=== PATIENT | female | born 1990 | race Caucasian/White ===

== ENCOUNTER 2016-08-08 15:39 | Emergency (ER) | payer SELFPAY ==
[~2016-08-08 15:39] MED LIST: HYDR-79 PO; ONDA8TAB12 PO
[2016-08-08 15:40] VITALS: BP 138/67
--- NOTE | 2016-08-08 16:59 | PHYS DOC ---
General Chief Complaint: SYNCOPE Stated Complaint: FALL/PASSED OUT Time Seen by MD: 16:28 Source: patient Exam Limitations: no limitations Problems: History of Present Illness Initial Comments Patient is a 26-year-old female who comes to the ED after syncopal episode. Patient states that immediately prior to emergency department arrival she was in the [place]'s restroom when she developed chills, shortness of breath with chest pressure, and severe weakness. She felt as if she would pass out and says she started to lower herself to the floor. Her next recollection was waking up on the floor as another [employer] customer who happened to be an RN found her lying on the bathroom floor. No postictal confusion reported, EMS was called and pt refused transfer. Upon regaining consciousness pt felt a very mild global headache and generalized right shoulder pain. No focal bony TTP, pt c/o diffuse muscular pain with right shoulder ROM. Pt works at a car wash outdoors, states she gets very hot at work but drinks water constantly in attempt to avoid dehydration. Currently menstruating, denies she stopped taking OCP last month as she and SO want to have another child. Pt states that this past month she has had two similar episodes both at rest and without emotional stress. The two prior episodes pt developed sudden onset SOB with chest pressure and weakness, both times she thought she was having an NE and took ASA per her mother who is RN. Both times symptoms resolved spontaneously. No prior syncopal episodes or chest pain, no h/o seizures or recent infections, denies illicit drugs or tobacco she drinks etoh occasionally. Timing/Duration: 1/2 hour Severity: severe Modifying Factors: improves with other Associated Symptoms: chest pain, malaise, shortness of breath, syncope, weakness Allergies: Coded Allergies: No Known Drug Allergies (Unverified , 06/26/15) Past Medical History Medical History: other (anxiety, hepatitis C) Surgical History: noncontributory Social History Smoker: non-smoker Alcohol: none Drugs: none Review of Systems Constitutional: denies chills, denies diaphoresis, denies fever, malaise, weakness Respiratory: denies cough, shortness of breath, denies wheezing Cardiovascular: see HPI, syncope Gastrointestinal: denies abdominal pain, denies diarrhea, denies nausea, denies vomiting Genitourinary: denies discharge, denies frequency, denies pain Musculoskeletal: denies back pain, denies joint swelling, denies neck pain Psychiatric/Neurological: see HPI Hematologic/Lymphatic: denies blood clots, denies easy bleeding, denies easy bruising Physical Exam General Appearance: no apparent distress Eyes: bilateral eye normal inspection, bilateral eye PERRL, bilateral eye EOMI Ear, Nose, Throat: hearing grossly normal, normal ENT inspection, normal pharynx Neck: non-tender, supple Respiratory: normal breath sounds, no respiratory distress Cardiovascular: normal peripheral pulses, regular rate, rhythm, no edema Gastrointestinal: normal bowel sounds, non tender, soft Back: normal inspection, no CVA tenderness, no vertebral tenderness Extremities: normal range of motion, normal inspection, no pedal edema (mild left calf TTP no swell/erythema/warmth/palpable mass), other (diffuse right shoulder TTP no bony TTP, SITS intact no swell/ecchymosis) Neurologic/Psychiatric: stair builder II-XII nml as tested, alert, normal mood/affect, oriented x 3, other (no motor deficits, slight decreased sensory left face and LUE) Skin: warm/dry, pallor Orders, Labs, Meds EKG: sinus bradycardia 53 bpm, nonspecific ST-T changes no STEMI. Interpreted by me. PATIENT: [facility] ACCOUNT: [id number] : 1990 LOCATION: ER AGE: 26 SEX: F EXAM STATUS: REG ER ORD. PHYSICIAN: FRANCA ARCHER DO REASON: syncope PROCEDURE: PORTABLE CHEST 1V Indication: Syncope. Time of exam 1658 hours. Correlation is made with prior study from 06/26/2015. FINDINGS: The heart size is normal. The lungs are clear. No pleural effusion or pneumothorax is identified. The pulmonary vascularity is normal. IMPRESSION: No acute abnormality detected. DICTATED AND SIGNED BY: KALI MADRID MD DATE: 08/08/16 1703 CC: PCP,NO; FRANCA ARCHER DO ~ d-dimer 0.58, AST 202, ALT 497, UDS + cannabinoids and benzos. No new or progressive symptoms thru ED course. I discussed findings at length with pt. History concerning for possible arrhythmia, inpatient admission and cardiology evaluation recommended. Patient states that she does not want to stay and requests discharge. I discussed discharge AGAINST MEDICAL ADVICE and risks and benefits of staying versus leaving at length with the patient and her questions were answered. She persistently requests discharge, she will leave AGAINST MEDICAL ADVICE see departure instructions. Departure Time of Disposition: 17:44 Disposition: 07 AGAINST MEDICAL ADVICE Diagnosis: syncope, elevated d-dimer, marijuana abuse Condition: GUARDED Patient Instructions: Discharge Against Medical Advice, Marijuana Abuse and Chemical Dependency, Syncope, [id number] Additional Instructions: As discussed you have chosen to leave AGAINST MEDICAL ADVICE. Benefits of staying for further evaluation have been explained to you, including potential early detection/treatment of life threatening condition. Possible risks of leaving without evaluation include worsening of condition, loss of quality of life and . You may return for further evaluation at any time. No driving, operating machinery, or swimming until cleared by your doctor. Discontinue marijuana abuse, seeking medical assistance if necessary. Off work through August 14, note given. Aggressive hydration with Gatorade and water. As discussed your symptoms are concerning for possible arrhythmia and inpatient cardiology evaluation recommended. Per your request: Dr [facility], call to schedule appointment. Return to ED as needed. FRANCA ARCHER DO Aug 08, 2016 16:59
[2016-08-08 17:01] LABS: BASO % 1 % (0-3); EOS # 0.1 x10^3/uL (0.0-0.7); EOS % 1 % (0-3); HEMATOCRIT 41.7 % (36.0-47.0); HEMOGLOBIN 13.9 g/dL (12.0-15.5); LYMPH % 26 % (24-48); MEAN CORPUSCULAR HEMOGLOBIN 31 pg (25-35); MEAN CORPUSCULAR HGB CONC 33 g/dL (31-37); MEAN CORPUSCULAR VOLUME 93 fL (79-100); MONO # 0.6 x10^3/uL (0.0-1.1); MONO % 8 % (0-9); NEUT # 4.8 x10^3uL (1.8-7.7); NEUT % 64 % (31-73); PLATELET COUNT 248 x10^3/uL (140-400); RED BLOOD COUNT 4.47 x10^6/uL (3.50-5.40); RED CELL DISTRIBUTION WIDTH 13.6 % (11.5-14.5); WHITE BLOOD COUNT 7.6 x10^3/uL (4.0-11.0)
--- NOTE | 2016-08-08 17:04 | RAD ---
Indication: Syncope. Time of exam 1658 hours. Correlation is made with prior study from 06/26/2015. FINDINGS: The heart size is normal. The lungs are clear. No pleural effusion or pneumothorax is identified. The pulmonary vascularity is normal. IMPRESSION: No acute abnormality detected.
[2016-08-08 17:09] LABS: AMPHETAMINE/METHAMPHETAMINE NEG (NEG); BARBITURATES NEG (NEG); BENZODIAZEPINES POS (NEG); CANNABINOIDS POS (NEG); COCAINE NEG (NEG); METHADONE NEG (NEG); OPIATES NEG (NEG); PHENCYCLIDINE NEG (NEG)
[2016-08-08 17:11] LABS: BACTERIA,URINE FEW /HPF (0-FEW); BILIRUBIN,URINE NEG (NEG); CLARITY,URINE CLEAR; COLOR,URINE YELLOW; GLUCOSE,URINE NEG (NEG); NITRITE,URINE NEG (NEG); RBC,URINE RARE /HPF (0-2); SQUAMOUS EPITHELIAL CELL,UR FEW /LPF; UROBILINOGEN,URINE 1 mg/dL (0.2 mg/dL); WBC,URINE RARE /HPF (0-4)
[2016-08-08 17:13] LABS: ALBUMIN 3.9 g/dL (3.4-5.0); ALBUMIN/GLOBULIN RATIO 0.9 (1.0-1.7); CALCIUM 8.9 mg/dL (8.5-10.1); CREATININE 0.7 mg/dL (0.6-1.0); GFR 99.6; MAGNESIUM 1.9 mg/dL (1.8-2.4); POTASSIUM 3.9 mmol/L (3.5-5.1); TOTAL BILIRUBIN 0.5 mg/dL (0.2-1.0); TOTAL PROTEIN 8.3 g/dL (6.4-8.2)
[2016-08-08] MEDS ORDERED: IV NORMAL SALINE 1,000ML 1,000 ML IV SCH (17:15)
[2016-08-08] MEDS ORDERED: ONDANSETRON PF 4 MG/2 ML VIAL. IV ONE (17:15)
[2016-08-08] MEDS ORDERED: HYDROcodone/APAP 7.5/325MG 1 TAB TABLET PO ONE (17:15)
--- NOTE | 2016-08-08 17:39 | EKG ---
[address] [address] Test Date: 2016-08-08 Test Time: 17:15:06 Pat Name: ANNETTA TORO Department: Room: Gender: F X Ray Consultant: : 1990 Requested By: FRANCA ARCHER Order Number: [id number] Reading MD: Measurements Intervals [place] Rate: 53 P: 48 CO: 122 QRS: 61 QRSD: 82 T: 46 QT: 406 QTc: 383 Interpretive Statements SINUS RHYTHM QRS(T) CONTOUR ABNORMALITY CANNOT RULE OUT ANTEROSEPTAL MYOCARDIAL DAMAGE RI6.01 Unconfirmed report No previous ECG available for comparison
== END 2016-08-08 18:14 | disposition left against medical advice (07) ==
LOC: ER 15:39
DX: R55 Syncope and collapse (principal); F12.10 Cannabis abuse, uncomplicated; R79.89 Other specified abnormal findings of blood chemistry; R79.1 Abnormal coagulation profile; M25.511 Pain in right shoulder; F41.9 Anxiety disorder, unspecified; Z86.19 Personal history of other infectious and parasitic diseases
CPT/HCPCS: 36415; 71010; 80053; 80305; 80320; 81001; 81025; 82550; 83605; 83735; 84484; 85027; 85379; 93005; 96361; 96374; 99285; J2405; G0481; J7030

== ENCOUNTER 2016-08-26 06:15 | Emergency (ER) | payer SELFPAY ==
[~2016-08-26] VITALS: Ht 180.3 cm; Wt 105.7 kg
--- NOTE | 2016-08-26 06:27 | ED.ADGEN ---
Past History Past Medical History: Anxiety, Depression, Other Past Surgical History: Alcohol Use: Occasionally Drug Use: None Adult General Chief Complaint Chief Complaint Syncope HPI HPI Patient is a 26 year old female who presents with tiredness, syncopal episode intermittent shortness of breath and left elbow pain. She states she woke up all night had chest tightness with mild shortness of breath passed out and hit her left elbow on the floor and her boyfriend woke her up. She presents with left elbow pain, feeling extremely tired but denies any chest pain or shortness of breath currently. She states that she was seen before August and had a positive d-dimer assigned out AMA at that time. She is concerned because this is the second time she passed out and wants to make sure nothing drawn. She does have past medical history of hep C, PTSD and anxiety. She is very upset since her child at the age of 1 in a car with her ex- and she's seeing a psychiatrist at this time for this. He started her on her anxiety meds. She denies what hurt anybody or herself. She denies any family history of heart attacks or sudden . Review of Systems Review of Systems Constitutional: Denies fever or chills [] Eyes: Denies change in visual acuity, redness, or eye pain [] HENT: Denies nasal congestion or sore throat [] Respiratory: Denies cough or shortness of breath [] Cardiovascular: No additional information not addressed in HPI [] GI: Denies abdominal pain, nausea, vomiting, bloody stools or diarrhea [] : Denies dysuria or hematuria [] Musculoskeletal: Denies back pain, positive for left elbow pain Integument: Denies rash or skin lesions [] Neurologic: Denies headache, focal weakness or sensory changes [] Endocrine: Denies polyuria or polydipsia [] Current Medications Current Medications Current Medications Medications (Trade) Dose Ordered Sig/Rusty Start Time Stop Time Status Last Admin Dose Admin Morphine Sulfate (Morphine 4mg Syringe) 4 mg 1X ONCE 08/26/16 09:00 08/26/16 09:01 DC Allergies Allergies Allergies Coded Allergies Type Severity Reaction Last Updated Verified No Known Drug Allergies 06/26/15 No Physical Exam Physical Exam Constitutional: Well developed, well nourished, no acute distress, non-toxic appearance. [] HENT: Normocephalic, atraumatic, bilateral external ears normal, oropharynx moist, no oral exudates, nose normal. [] Eyes: PERRLA, EOMI, conjunctiva normal, no discharge. [] Neck: Normal range of motion, no tenderness, supple, no stridor. [] Cardiovascular:Heart rate regular rhythm, no murmur [] Lungs & Thorax: Bilateral breath sounds clear to auscultation [] Abdomen: Bowel sounds normal, soft, no tenderness, no masses, no pulsatile masses. [] Skin: Warm, dry, no erythema, no rash. [] Back: No tenderness, no CVA tenderness. [] Extremities: Mild tender palpation of the left elbow, no deformity noted, range of motion intact, able to supinate and pronate without any discomfort at the elbow. no cyanosis, no clubbing, ROM intact, no edema. [] Neurologic: Alert and oriented X 3, normal motor function, normal sensory function, no focal deficits noted. [] Psychologic: Affect normal, judgement normal, mood normal. [] Current Patient Data Vital Signs Vital Signs Date Time Temp Pulse Resp B/P (MAP) Pulse Ox O2 Delivery O2 Flow Rate FiO2 08/26/16 07:47 76 20 128/59 (82) 97 Room Air 08/26/16 06:15 98.5 Lab Results Laboratory Tests Test 08/26/16 07:25 08/26/16 07:39 08/26/16 07:42 Urine Collection Type Unknown Urine Color Yellow Urine Clarity Clear Urine pH 8.0 Urine Specific [place] 1.015 Urine Protein Neg (NEG-TRACE) Urine Glucose (UA) Neg mg/dL (NEG) Urine Ketones (Stick) Neg mg/dL (NEG) Urine Blood Neg (NEG) Urine Nitrite Neg (NEG) Urine Bilirubin Neg (NEG) Urine Urobilinogen Dipstick 0.2 mg/dL (0.2 mg/dL) Urine Leukocyte Esterase Neg (NEG) Urine RBC 0 /HPF (0-2) Urine WBC Occ /HPF (0-4) Urine Squamous Epithelial Cells Occ /LPF Urine Bacteria 0 /HPF (0-FEW) Urine Opiates Screen Neg (NEG) Urine Methadone Screen Neg (NEG) Urine Barbiturates Neg (NEG) Urine Phencyclidine Screen Neg (NEG) Urine Amphetamine/Methamphetamine Neg (NEG) Urine Benzodiazepines Screen Pos (NEG) Urine Cocaine Screen Neg (NEG) Urine Cannabinoids Screen Pos (NEG) Urine Ethyl Alcohol Neg (NEG) POC Urine HCG, Qualitative hcg negative (Negative) White Blood Count 7.6 x10^3/uL (4.0-11.0) Red Blood Count 3.99 x10^6/uL (3.50-5.40) Hemoglobin 12.6 g/dL (12.0-15.5) Hematocrit 37.2 % (36.0-47.0) Mean Corpuscular Volume 93 fL (79-100) Mean Corpuscular Hemoglobin 32 pg (25-35) Mean Corpuscular Hemoglobin Concent 34 g/dL (31-37) Red Cell Distribution Width 14.0 % (11.5-14.5) Platelet Count 202 x10^3/uL (140-400) Neutrophils (%) (Auto) 62 % (31-73) Lymphocytes (%) (Auto) 27 % (24-48) Monocytes (%) (Auto) 10 % (0-9) H Eosinophils (%) (Auto) 2 % (0-3) Basophils (%) (Auto) 0 % (0-3) Neutrophils # (Auto) 4.7 x10^3uL (1.8-7.7) Lymphocytes # (Auto) 2.0 x10^3/uL (1.0-4.8) Monocytes # (Auto) 0.7 x10^3/uL (0.0-1.1) Eosinophils # (Auto) 0.1 x10^3/uL (0.0-0.7) Basophils # (Auto) 0.0 x10^3/uL (0.0-0.2) Prothrombin Time 10.2 SEC (9.4-11.4) Prothrombin Time INR 1.0 (0.9-1.1) PTT 23 SEC (23-33) D-Dimer (Jami) 0.41 mg/L (0.00-0.50) Sodium Level 139 mmol/L (136-145) Potassium Level 3.8 mmol/L (3.5-5.1) Chloride Level 105 mmol/L (98-107) Carbon Dioxide Level 31 mmol/L (21-32) Anion Gap 3 (6-14) L Blood Urea Nitrogen 11 mg/dL (7-20) Creatinine 0.7 mg/dL (0.6-1.0) Estimated GFR (Cockcroft-Gault) 99.6 Glucose Level 76 mg/dL (70-99) Calcium Level 8.6 mg/dL (8.5-10.1) Magnesium Level 1.6 mg/dL (1.8-2.4) L Total Bilirubin 0.3 mg/dL (0.2-1.0) Direct Bilirubin 0.1 mg/dL (0.0-0.2) Aspartate Amino Transferase (AST) 122 U/L (15-37) H Alanine Aminotransferase (ALT) 348 U/L (14-59) H Alkaline Phosphatase 64 U/L (46-116) Creatine Kinase 43 U/L (26-192) Creatine Kinase MB (Mass) < 0.5 ng/mL (0.0-3.6) Creatine Kinase MB Relative Index 1.2 % (0-4) SO-Srd-Z-Type Natriuretic Peptide 129 pg/mL (0-124) H Total Protein 7.0 g/dL (6.4-8.2) Albumin 3.2 g/dL (3.4-5.0) L EKG EKG EKG shows normal sinus [address] elevations or T-wave inversions, normal axis, QTC 398 ms, as interpreted by me. Radiology/Procedures Radiology/Procedures 3 views of the left elbow did not show any fractures, foreign bodies, soft tissue abnormalities as interpreted by me. Course & Med Decision Making Course & Med Decision Making Pertinent Labs and Imaging studies reviewed. (See chart for details) EKG, x-ray of her elbow, labs are nonacute. She does have hep C which reflects in her LFTs. She does not have any thoughts of harming herself or anybody else. She is being provided a primary care list of physicians to call for follow-up. Her d-dimer is negative and she does not have any chest pain or shortness of breath, therefore I do not believe she needs a CT angiogram. Her symptoms are likely secondary to her stress that she is going through.Return precautions given. She is agreeable plan and being discharged in stable condition this time. She is also being given information to the [facility] because she said that her psychiatrist fee's are $70 per visit, and it is difficult for her to afford that. Final Impression Final Impression Anxiety/grief reaction Syncopal episode Hepatitis C Problems: Dragon Disclaimer Dragon Disclaimer This electronic medical record was generated, in whole or in part, using a voice recognition dictation system. JATIN LAIRD MD Aug 26, 2016 06:27
[2016-08-26 07:56] LABS: BASO % 0 % (0-3); EOS # 0.1 x10^3/uL (0.0-0.7); EOS % 2 % (0-3); HEMATOCRIT 37.2 % (36.0-47.0); HEMOGLOBIN 12.6 g/dL (12.0-15.5); LYMPH % 27 % (24-48); MEAN CORPUSCULAR HEMOGLOBIN 32 pg (25-35); MEAN CORPUSCULAR HGB CONC 34 g/dL (31-37); MEAN CORPUSCULAR VOLUME 93 fL (79-100); MONO # 0.7 x10^3/uL (0.0-1.1); MONO % 10 % (0-9); NEUT # 4.7 x10^3uL (1.8-7.7); NEUT % 62 % (31-73); PLATELET COUNT 202 x10^3/uL (140-400); RED BLOOD COUNT 3.99 x10^6/uL (3.50-5.40); WHITE BLOOD COUNT 7.6 x10^3/uL (4.0-11.0)
[2016-08-26 08:01] LABS: BARBITURATES NEG (NEG); BENZODIAZEPINES POS (NEG); CANNABINOIDS POS (NEG); COCAINE NEG (NEG); METHADONE NEG (NEG); OPIATES NEG (NEG); PHENCYCLIDINE NEG (NEG)
[2016-08-26 08:02] LABS: AMPHETAMINE/METHAMPHETAMINE NEG (NEG)
[2016-08-26 08:10] LABS: BACTERIA,URINE 0 /HPF (0-FEW); BILIRUBIN,URINE NEG (NEG); CLARITY,URINE CLEAR; COLOR,URINE YELLOW; GLUCOSE,URINE NEG (NEG); NITRITE,URINE NEG (NEG); RBC,URINE 0 /HPF (0-2); SQUAMOUS EPITHELIAL CELL,UR OCC /LPF; UROBILINOGEN,URINE 0.2 mg/dL (0.2 mg/dL); WBC,URINE OCC /HPF (0-4)
[2016-08-26 08:18] LABS: ALBUMIN 3.2 g/dL (3.4-5.0); ALK PHOS 64 U/L (46-116); ALT (SGPT) 348 U/L (14-59); ANION GAP 3 (6-14); AST (SGOT) 122 U/L (15-37); BLOOD UREA NITROGEN 11 mg/dL (7-20); CALCIUM 8.6 mg/dL (8.5-10.1); CARBON DIOXIDE 31 mmol/L (21-32); CHLORIDE 105 mmol/L (98-107); CREATINE KINASE 43 U/L (26-192); CREATININE 0.7 mg/dL (0.6-1.0); DIRECT BILIRUBIN 0.1 mg/dL (0.0-0.2); GFR 99.6; GLUCOSE 76 mg/dL (70-99); MAGNESIUM 1.6 mg/dL (1.8-2.4); POTASSIUM 3.8 mmol/L (3.5-5.1); SODIUM 139 mmol/L (136-145); TOTAL BILIRUBIN 0.3 mg/dL (0.2-1.0)
[2016-08-26] MEDS ORDERED: MORPHINE SULFATE 4 MG/ML DISP.SYRIN. IV ONE (09:00)
--- NOTE | 2016-08-26 09:00 | RAD ---
EXAM: Chest one view. HISTORY: Syncope. COMPARISON: 08/08/2016. FINDINGS: A frontal view of the chest is obtained. There are no confluent infiltrates. There is no pneumothorax or pleural effusion. The heart is not enlarged. IMPRESSION: 1. No confluent infiltrates.
--- NOTE | 2016-08-26 09:19 | RAD ---
EXAM: Left elbow 3 views. HISTORY: Fall with left elbow pain. COMPARISON: None. FINDINGS: No fractures are identified. Joint spaces and alignment are maintained. There is no joint effusion. IMPRESSION: 1. No fracture.
[2016-08-26 10:00] VITALS: BP 128/70
== END 2016-08-26 10:03 | disposition home or self-care (01) ==
LOC: ER 06:15
DX: R55 Syncope and collapse (principal); B19.20 Unspecified viral hepatitis C without hepatic coma; M25.522 Pain in left elbow; F41.9 Anxiety disorder, unspecified; F32.9 Major depressive disorder, single episode, unspecified
CPT/HCPCS: 36415; 71010; 73080; 80048; 80076; 80305; 80320; 81001; 81025; 82553; 83735; 83880; 84443; 85027; 85379; 85610; 85730; 93005; 96374; 99285; J2270; G0481

== ENCOUNTER 2016-09-17 19:37 | Emergency (ER) | payer SELFPAY ==
[2016-09-17] MEDS ORDERED: IV NORMAL SALINE 1,000ML 1,000 ML IV ONE (19:45)
[2016-09-17] MEDS ORDERED: MIDAZOLAM HCL 5 MG/5 ML VIAL ONE ×2 (20:11→21:00)
[2016-09-17] MEDS ORDERED: PROPOFOL 100 ML IV ONE ×2 (20:21→21:20)
[2016-09-17] MEDS ORDERED: IV NORMAL SALINE 100ML 100 ML ONE (20:42)
[2016-09-17] MEDS ORDERED: levETIRAcetam 500 MG/5 ML VIAL IV ONE (20:42)
[2016-09-17 20:54] LABS: BASO % 1 % (0-3); EOS # 0.2 x10^3/uL (0.0-0.7); EOS % 2 % (0-3); HEMATOCRIT 41.2 % (36.0-47.0); HEMOGLOBIN 13.8 g/dL (12.0-15.5); LYMPH # 3.6 x10^3/uL (1.0-4.8); LYMPH % 45 % (24-48); MEAN CORPUSCULAR HEMOGLOBIN 32 pg (25-35); MEAN CORPUSCULAR HGB CONC 34 g/dL (31-37); MEAN CORPUSCULAR VOLUME 95 fL (79-100); MONO # 0.8 x10^3/uL (0.0-1.1); MONO % 10 % (0-9); NEUT # 3.4 x10^3uL (1.8-7.7); NEUT % 43 % (31-73); PLATELET COUNT 255 x10^3/uL (140-400); RED BLOOD COUNT 4.34 x10^6/uL (3.50-5.40); RED CELL DISTRIBUTION WIDTH 14.1 % (11.5-14.5)
[2016-09-17] MEDS ORDERED: SUCCINYLCHOLINE 200 MG/10 ML VIAL. ONE (21:00)
[2016-09-17] MEDS ORDERED: VECURONIUM 10 MG VIAL. IV ONE (21:00)
[2016-09-17] MEDS ORDERED: [UNRECOGNIZED DRUG - OTHER] IJ ONE (21:00)
[2016-09-17 21:05] LABS: AMPHETAMINE/METHAMPHETAMINE NEG (NEG); BARBITURATES NEG (NEG); BENZODIAZEPINES POS (NEG); CANNABINOIDS POS (NEG); COCAINE NEG (NEG); METHADONE NEG (NEG); OPIATES NEG (NEG); PHENCYCLIDINE NEG (NEG)
[2016-09-17 21:08] LABS: ALBUMIN 3.8 g/dL (3.4-5.0); ALBUMIN/GLOBULIN RATIO 0.8 (1.0-1.7); CALCIUM 8.6 mg/dL (8.5-10.1); CREATININE 0.7 mg/dL (0.6-1.0); GFR 99.6; POTASSIUM 3.7 mmol/L (3.5-5.1); TOTAL BILIRUBIN 0.4 mg/dL (0.2-1.0); TOTAL PROTEIN 8.3 g/dL (6.4-8.2)
[2016-09-17 21:20] LABS: BACTERIA,URINE 0 /HPF (0-FEW); BILIRUBIN,URINE NEG (NEG); CLARITY,URINE HAZY; COLOR,URINE YELLOW; GLUCOSE,URINE NEG (NEG); NITRITE,URINE NEG (NEG); RBC,URINE OCC /HPF (0-2); SQUAMOUS EPITHELIAL CELL,UR FEW /LPF; UROBILINOGEN,URINE 0.2 mg/dL (0.2 mg/dL); WBC,URINE OCC /HPF (0-4)
--- NOTE | 2016-09-17 21:45 | RAD ---
CT HEAD WO CONTRAST dated 09/17/2016 9:13 PM Indication: New-onset seizure possible overdose seizure. Comparison: No comparison is available. Technique: Contiguous axial imaging of the head performed from skull base to vertex. No contrast administered. One or more of the following individualized dose reduction techniques were utilized for this examination: 1. Automated exposure control 2. Adjustment of the mA and/or kV according to patient size 3. Use of iterative reconstruction technique Findings: Ventricles and sulci are within normal limits for age. No midline shift or mass effect. Brain parenchyma is of normal attenuation. No hemorrhage or extra-axial collection. Posterior fossa and brainstem unremarkable. Mild mucosal thickening bilateral ethmoid air cells. The visualized paranasal sinuses and mastoid air cells are otherwise clear. No acute calvarial abnormality. IMPRESSION: 1. No acute intracranial hemorrhage or mass. 2. Mild sinus disease. Electronically signed by: Randy Dalton MD (09/17/2016 9:42 PM) [facility]
[2016-09-17] MEDS ORDERED: LORazepam 2 MG/ML VIAL ONE (22:16)
[2016-09-17 22:23] VITALS: BP 130/70
[2016-09-17] MEDS ORDERED: LORazepam 2 MG/ML VIAL IV ONE (22:45)
--- NOTE | 2016-09-17 23:18 | ED.ADGEN ---
Past History Past Medical History: Anxiety, Depression, Renal Disease, Other Past Surgical History: Alcohol Use: Occasionally Drug Use: None Adult General Chief Complaint Chief Complaint seizure HPI HPI Patient is a 26 y/o female who was having a seizure at home. boyfriend called EMS. he thinks she has a seizure hx. he denied drugs. she had 1 'tall beer". EMS states she is having extending posturing type actions in all extremities for 10-15 sec. her HR is tachy. she is unresponsive to commands. they gave 15mg versed in route with little effect. pt is continuing to do this in ED. no traumas or illnesses per boyfriend Review of Systems Review of Systems Constitutional: unresponsive Eyes: HENT: Respiratory: spitting Cardiovascular: GI: : Musculoskeletal: Integument: D Neurologic:seizure, pt unresponsive Endocrine: Denies polyuria or polydipsia [] Current Medications Current Medications Current Medications Medications (Trade) Dose Ordered Sig/Rusty Start Time Stop Time Status Last Admin Dose Admin Levetiracetam (Keppra) 500 mg STK-MED ONCE 09/17/16 20:42 09/17/16 20:43 DC Levetiracetam 1000 mg/Sodium Chloride 100 ml @ 400 mls/hr 1X ONCE 09/17/16 20:15 09/17/16 20:29 DC 09/17/16 20:45 400 MLS/HR Lorazepam (Ativan) 1 mg 1X ONCE 09/17/16 22:45 09/17/16 22:46 DC Midazolam HCl (Versed) 5 mg STK-MED ONCE 09/17/16 20:11 09/17/16 20:12 DC Propofol 100 ml @ As Directed STK-MED ONCE 09/17/16 21:20 09/17/16 21:21 DC Sodium Chloride 100 ml @ As Directed STK-MED ONCE 09/17/16 20:42 09/17/16 20:43 DC Allergies Allergies Allergies Coded Allergies Type Severity Reaction Last Updated Verified No Known Drug Allergies 06/26/15 No Physical Exam Physical Exam Constitutional: Well developed,unresponsive, HENT: Normocephalic, atraumatic, bilateral external ears normal, oropharynx moist, no oral exudates, nose normal. drooling and spitting Eyes: PERRLA, 4mm bilat, conjunctiva normal, no discharge. [] Cardiovascular: tachy, no murmur [] Lungs & Thorax: Bilateral breath sounds clear to auscultation [] Abdomen: Bowel sounds normal, soft, nondistended Extremities: pt extending all extremities. no clonic movements seen. moving all extremities equally. she is witdrawing during IV starts Neurologic: pt is not following commands. when she is having episodes of extending her extremities, her eyes roll to back of head. withdraws but no other purposeful movements. Current Patient Data Vital Signs Vital Signs Date Time Temp Pulse Resp B/P (MAP) Pulse Ox O2 Delivery O2 Flow Rate FiO2 09/17/16 22:40 100 Ventilator 09/17/16 19:37 97.5 125 20 Lab Results Laboratory Tests Test 09/17/16 20:30 09/17/16 20:33 09/17/16 20:49 09/17/16 20:50 Urine Collection Type U cath Urine Color Yellow Urine Clarity Hazy Urine pH 5.5 Urine Specific [place] 1.010 Urine Protein Neg (NEG-TRACE) Urine Glucose (UA) Neg mg/dL (NEG) Urine Ketones (Stick) Neg mg/dL (NEG) Urine Blood Neg (NEG) Urine Nitrite Neg (NEG) Urine Bilirubin Neg (NEG) Urine Urobilinogen Dipstick 0.2 mg/dL (0.2 mg/dL) Urine Leukocyte Esterase Neg (NEG) Urine RBC Occ /HPF (0-2) Urine WBC Occ /HPF (0-4) Urine Squamous Epithelial Cells Few /LPF Urine Bacteria 0 /HPF (0-FEW) Urine Mucus Mod /LPF Urine Opiates Screen Neg (NEG) Urine Methadone Screen Neg (NEG) Urine Barbiturates Neg (NEG) Urine Phencyclidine Screen Neg (NEG) Urine Amphetamine/Methamphetamine Neg (NEG) Urine Benzodiazepines Screen Pos (NEG) Urine Cocaine Screen Neg (NEG) Urine Cannabinoids Screen Pos (NEG) Urine Ethyl Alcohol Pos (NEG) White Blood Count 8.0 x10^3/uL (4.0-11.0) Red Blood Count 4.34 x10^6/uL (3.50-5.40) Hemoglobin 13.8 g/dL (12.0-15.5) Hematocrit 41.2 % (36.0-47.0) Mean Corpuscular Volume 95 fL (79-100) Mean Corpuscular Hemoglobin 32 pg (25-35) Mean Corpuscular Hemoglobin Concent 34 g/dL (31-37) Red Cell Distribution Width 14.1 % (11.5-14.5) Platelet Count 255 x10^3/uL (140-400) Neutrophils (%) (Auto) 43 % (31-73) Lymphocytes (%) (Auto) 45 % (24-48) Monocytes (%) (Auto) 10 % (0-9) H Eosinophils (%) (Auto) 2 % (0-3) Basophils (%) (Auto) 1 % (0-3) Neutrophils # (Auto) 3.4 x10^3uL (1.8-7.7) Lymphocytes # (Auto) 3.6 x10^3/uL (1.0-4.8) Monocytes # (Auto) 0.8 x10^3/uL (0.0-1.1) Eosinophils # (Auto) 0.2 x10^3/uL (0.0-0.7) Basophils # (Auto) 0.0 x10^3/uL (0.0-0.2) Sodium Level 143 mmol/L (136-145) Potassium Level 3.7 mmol/L (3.5-5.1) Chloride Level 107 mmol/L (98-107) Carbon Dioxide Level 25 mmol/L (21-32) Anion Gap 11 (6-14) Blood Urea Nitrogen 7 mg/dL (7-20) Creatinine 0.7 mg/dL (0.6-1.0) Estimated GFR (Cockcroft-Gault) 99.6 BUN/Creatinine Ratio 10 (6-20) Glucose Level 84 mg/dL (70-99) Calcium Level 8.6 mg/dL (8.5-10.1) Total Bilirubin 0.4 mg/dL (0.2-1.0) Aspartate Amino Transferase (AST) 198 U/L (15-37) H Alanine Aminotransferase (ALT) 517 U/L (14-59) H Alkaline Phosphatase 87 U/L (46-116) Total Protein 8.3 g/dL (6.4-8.2) H Albumin 3.8 g/dL (3.4-5.0) Albumin/Globulin Ratio 0.8 (1.0-1.7) L Ethyl Alcohol Level 108 mg/dL (0-10) H POC Urine HCG, Qualitative hcg negative (Negative) Blood pH 7.27 (7.35-7.45) L Blood Gas PCO2 49 mmHg (35-45) H Blood Gas PO2 186 mmHg (80-100) H Blood Gas HCO3 23 mmol/L (22-26) Arterial Bld O2 Saturation (Calc) 99 % (92-99) FiO2 100 % EKG EKG HR 92, NSR time 2144. nml axis, no st dep or elev. nml axis[] Radiology/Procedures Radiology/Procedures Intubation with succinylcholine and versed. 7.0 ETT placed at 24 at teeth. cxr showed right main stem intub so pulled tube back 1 inch. tube is above bryce. lung sounds equal.[] Course & Med Decision Making Course & Med Decision Making Pertinent Labs and Imaging studies reviewed. (See chart for details) Mom states pt has had "stress induced seizures" for years. last studies were 8 years ago. she is on antidepressents and has been under a lot of stress lately. she has been intubated before for her "seizure"activity. pt was very combative and not following commands. at one point she did stop and tell us to get off of her then began having the 15 sec of extending all extremities. mom suggested that she did not need seizure studies because "all have shown stress induced seizures". pt has been sedated with propofol [] Final Impression Final Impression seizures[] Problems: Dragon Disclaimer Dragon Disclaimer This electronic medical record was generated, in whole or in part, using a voice recognition dictation system. Critical Care Note Total Time (mins): 70 Comments pt had to be sedated and intubated due to ongoing combative, seizure activity. speaking with parents and reviewing labs, ct, xray. BRITNEY ELY MD Sep 17, 2016 23:18
[2016-09-18 00:45] LABS: BGAS PH 7.27 (7.35-7.45)
--- NOTE | 2016-09-18 06:51 | EKG ---
[address] [address] Test Date: 2016-09-17 Test Time: 21:44:20 Pat Name: ANNETTA [facility] Department: Room: Gender: F Medical Support Assistant: PARKER : 1990 Requested By: BRITNEY ELY Order Number: [id number] Reading MD: Measurements Intervals [place] Rate: 92 P: 46 [place]: 136 QRS: 63 QRSD: 82 T: 42 QT: 356 QTc: 445 Interpretive Statements SINUS RHYTHM NORMAL ECG RI6.01 Unconfirmed report No previous ECG available for comparison
--- NOTE | 2016-09-18 10:04 | RAD ---
AP portable chest radiograph 09/17/2016 Clinical History: Post intubation. Two AP portable erect digital radiographs of the chest were obtained. Comparison study is dated 08/26/2016. An ET tube has been placed. On initial radiographs the tip of the tube overlies the trachea at the level of the bryce. It was retracted. On the second radiograph it overlies the trachea at the level of the superior clavicles. The cardiac and mediastinal silhouettes are within normal limits in size and configuration. Linear bands of subsegmental atelectasis are seen involving the left lower lobe. No area of consolidation is seen. No pneumothorax or pleural effusion is noted. The osseous structures are unchanged. Impression: 1. The tip of the ET tube overlies the trachea at the level of the superior clavicles. 2. Left lower lobe subsegmental atelectasis.
== END 2016-09-17 23:25 | disposition short-term general hospital (02) ==
LOC: ER 19:37
DX: R56.9 Unspecified convulsions (principal); F41.9 Anxiety disorder, unspecified; F32.9 Major depressive disorder, single episode, unspecified
CPT/HCPCS: 31500; 36415; 51702; 70450; 71010; 80053; 80307; 81001; 81025; 82803; 85027; 93005; 96361; 96365; 96375; 99291; G0480; J0330; J1953; J2060; J2250; G0479; J7030